=== PATIENT | male | born 1980 | race Two or more races ===

== ENCOUNTER 2018-11-27 00:56 | Emergency (ER) | payer OTHER ==
[~2018-11-27] VITALS: Ht 180.3 cm; Wt 106.6 kg
[2018-11-27] MEDS ORDERED: ATENOLOL25 MG ORAL (01:09)
[2018-11-27] MEDS ORDERED: LIALDA1.2 GM ORAL (01:09)
--- NOTE | 2018-11-27 01:10 | NUR ---
ED Nurse Note: PT walked [facility] complaining of L ear ach and states his ear is "plugged up" pt also stats hes not able to hear very well from affected ear. pt also states he woke up with a soar throat last morn but now is "ok". triag temp is 99.2 oral
[2018-11-27 01:12] VITALS: BP 141/90
[2018-11-27] MEDS ORDERED: CLARITIN-D 121 EAC1 ORAL (01:26)
[2018-11-27] MEDS ORDERED: AMOXICILLIN500 MG ORAL (01:26)
[2018-11-27 01:30] VITALS: BP_SYST 138; BP_SYST 141; BP_DIAS 90
[2018-11-27] MEDS ORDERED: Acetaminophen 500mg (ES) tab ORAL ONE (01:30)
--- NOTE | 2018-11-27 01:31 | NUR ---
ED Nurse Note: PT is Dc per ERMD orders. pt has left with all DC notes and prescriptions. pt is alert and oriented times 4. pt is able to ambulte. pt ID band remvoed. pt showes understanding of Dc ntoes and prescriptions as pt is able to teach back info. pt is instructed to follow up with primary MD as soon as possible. pt is instructed to report back to ER is any variance in condition. pt vital signs, status and condition is reported to ERMD prior to DC. pt is stable for DC.
--- NOTE | 2018-11-27 01:47 | Emergency Room Report ---
History of Present Illness General Chief Complaint: Earache Source: Patient Present Illness HPI Patient is a 38-year-old male who presented after increased left-sided earache. Patient had prior history of ear infection in the past. He denies any upper respiratory symptoms. He reports having a severe earache which was not relieved by his tramadol. Patient has prior history of Crohn's disease. He states he has increased discomfort after taking ibuprofen. Patient denied any other current medical problems. He denies any active complaints regarding his Crohn's disease. He denies any severe headache. He denies any hearing loss or recent trauma. Patient a prior history of port wine stain.He denies any prior history of hereditary hemorrhagic telangiectasia or Sturge-Holt Allergies: Coded Allergies: SULFA (SULFONAMIDE ANTIBIOTICS) (Verified Allergy, Unknown, 11/27/18) Patient History Past Medical History: see triage record Reviewed Nursing Documentation: PMH: Agreed; PSxH: Agreed Nursing Documentation-PM Past Medical History: No Stated History Hx Hypertension: Yes Hx Gastrointestinal Problems: Yes - CROHNS Review of Systems All Other Systems: negative except mentioned in HPI Physical Exam Vital Signs Date Time Temp Pulse Resp B/P (MAP) Pulse Ox O2 Delivery O2 Flow Rate FiO2 11/27/18 01:03 99.1 71 14 141/90 99 Room Air General Appearance: well appearing, no apparent distress, alert, GCS 15, non- toxic Head: normocephalic, atraumatic ENT: hearing grossly normal, normal voice, other - left ear with wax and bulging, erythema of tm, fluid, canal otherwise normal Neck: full range of motion, supple Respiratory: no respiratory distress, speaking full sentences Cardiovascular #1: normal inspection Gastrointestinal: normal inspection Musculoskeletal: back normal, no calf tenderness Neurologic: normal inspection, alert, oriented x3, responsive, 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 Patient presented for ear pain. Differential diagnosis included was not limited to otitis media, malignant otitis externa, foreign body, cellulitis, mastoiditis, carotid dissection, myocardial infarction among others. Patient has a benign exam and does not appear to require any further imaging or laboratory testing at this time. Patient appears to have an otitis media. He was given first dose of antibiotics as well as Tylenol for pain. He was advised to follow-up with his ENT. He was advised to return if worse. Last Vital Signs Date Time Temp Pulse Resp B/P (MAP) Pulse Ox O2 Delivery O2 Flow Rate FiO2 11/27/18 01:30 99.1 73 14 141/90 99 Room Air Status: improved Disposition: HOME, SELF-CARE Condition: Stable Scripts Loratadine/Pseudoephedrine (CLARITIN-D 12 HOUR TABLET) 1 Each Tab.er.12h 1 TAB ORAL EVERY 12 HOURS, #30 TAB Prov: Nuno Mays MD 11/27/18 Amoxicillin* (AMOXIL*) 500 Mg Capsule 500 MG ORAL EVERY 8 HOURS, #30 CAP Prov: Nuno Mays MD 11/27/18 Referrals: NON PHYSICIAN (PCP) Patient Instructions: Otitis Media, Adult Nuno Mays MD Nov 27, 2018 01:47
== END 2018-11-27 01:32 | disposition home or self-care (01) ==
LOC: EMR 01:20
DX: H66.92 Otitis media, unspecified, left ear (principal); Z88.2 Allergy status to sulfonamides; I10 Essential (primary) hypertension
CPT/HCPCS: 99282